=== PATIENT | female | born 2000 | race Caucasian/White ===

== ENCOUNTER 2019-06-07 11:41 | Inpatient (IN) ==
[2019-06-07] MEDS ORDERED: SODIUM CHLORIDE 0.9% 1000ML 2,000 ML IV SCH (12:15)
[2019-06-07] MEDS ORDERED: CEFEPIME 2,000 MG/20 ML VIAL IV STA (12:21)
[2019-06-07] MEDS ORDERED: VANCOMYCIN CONSULT ACTIVE PRN (12:21)
[2019-06-07] MEDS ORDERED: VANCOMYCIN HCL 1,250 MG in SODIUM CHLORIDE 0.9% 500 ML IV ONE (12:21)
[2019-06-07] MEDS ORDERED: ACETAMINOPHEN 500 MG TAB PO STA (12:25)
[2019-06-07] MEDS ORDERED: LACTATED RINGER'S 1,000 ML IV ONE ×2 (12:26→15:14)
[2019-06-07 12:50] LABS: INR 1.1 (0.9-1.1); Prothrombin Time 11.2 Seconds (9.0-12.0)
--- NOTE | 2019-06-07 12:53 | XRay Report ---
SINGLE VIEW CHEST CLINICAL HISTORY: Fever. FINDINGS: An AP, portable, upright chest radiograph is compared to study dated 03/10/2019. The cardiom ediastinal silhouette is unremarkable. The lungs and pleural spaces are clear. No pneumothorax is see n. The bony thorax is grossly intact. Bilateral nipple piercings are noted. IMPRESSION: No active disease in the chest. ACT 112: Negative or not required by law. Electronically signed by: Brandon Wood M.D. 06/07/2019 12:52 PM
[2019-06-07 13:00] LABS: Alanine Aminotransferase 13 U/L (12-78); Albumin Level 2.8 gm/dl (3.4-5.0); Aspartate Aminotransferase < 3 U/L (15-37); BUN Creatinine Ratio 13.2 (10-20); Blood Urea Nitrogen 6 mg/dl (7-18); Calcium 8.4 mg/dl (8.5-10.1); Carbon Dioxide 23 mmol/L (21-32); Chloride 101 mmol/L (98-107); Creatinine Clr Calc Pharmacy 178.7 ml/min; Est GFR (African American) > 150.0; Est GFR (Non-African American) 142.2; Glucose 109 mg/dl (70-99); Lipase 40 U/L (73-393); Potassium 3.2 mmol/L (3.5-5.1); Sodium 131 mmol/L (136-145)
[2019-06-07 13:05] LABS: Albumin Globulin Ratio 0.6 (0.9-2); Alkaline Phosphatase 39 U/L (45-117); Bilirubin,Total 1.1 mg/dl (0.2-1); Globulin 4.9 gm/dl (2.5-4.0); Total Protein 7.7 gm/dl (6.4-8.2); Troponin I < 0.015 ng/ml (0-0.045)
[2019-06-07 13:31] LABS: Hematocrit (blood only) 33.1 % (37-47); Hemoglobin 11.2 g/dL (12.0-16.0); Mean Corpuscular Hemoglobin 27.8 pg (25-34); Mean Corpuscular Hgb Conc 33.8 g/dL (32-36); Mean Corpuscular Volume 82.1 fL (80-100); Platelet Count 175 K/uL (130-400); RDW Coefficient of Variation 13.3 % (11.5-14.5); RDW Standard Deviation 40.7 fL (36.4-46.3); Red Blood Count 4.03 M/uL (4.2-5.4); White Blood Count 0.51 K/uL (4.8-10.8)
[2019-06-07 13:33] LABS: ALC (manual) 0.43 K/uL (1.2-3.4); ANC (manual) 0.01 K/uL (1.4-6.5); Basophils # (manual) 0.01 K/uL (0-0.2); Eosinophils # (manual) 0.02 K/uL (0-0.5); Giant Platelets 1+; Lymphocytes # (manual) 0.36 K/uL (1.2-3.4); Monocytes # (manual) 0.05 K/uL (0.11-0.59); Neutrophils # (manual) 0.01 K/uL (1.4-6.5); Reactive Lymphocytes # (manual) 0.07 K/uL; Toxic Granulation Occasional
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
[2019-06-07 14:57] LABS: Appearance Urine Cloudy (Clear); Bacteria Urine Automated 1+ (Negative); Blood Urine Negative (Negative); Color Urine Dark Yellow; Epithelial Cell Urine Auto >30 /lpf (0-5); Glucose Urine UA Negative (Negative); Leukocyte Esterase Urine Negative (Negative); Nitrite Urine Negative (Negative); Protein Urine 2+ (Negative); Urobilinogen Urine Negative (Negative)
[2019-06-07 15:02] LABS: Pregnancy Test, Urine Negative (Negative)
[2019-06-07 15:05] LABS: Bilirubin Urine 1+ (Negative)
[2019-06-07 15:06] LABS: Ketones Urine 3+ (Negative)
[2019-06-07 15:24] LABS: RBC Urine Automated 0-4 /hpf (0-4); Renal Epithelial Cells Urine 0-5 /lpf (0-5)
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
[2019-06-07] MEDS ORDERED: methylPREDNISolone 125 MG in SYRINGE 0 ML IV ONE (17:45)
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
[2019-06-07] MEDS: VANCOMYCIN HCL 1,000 MG in SODIUM CHLORIDE 0.9% 250 ML IV SCH (17:49)
[2019-06-07 18:18] LABS: BUN Creatinine Ratio 12.4 (10-20); Blood Urea Nitrogen 5 mg/dl (7-18); Carbon Dioxide 20 mmol/L (21-32); Chloride 108 mmol/L (98-107); Est GFR (African American) > 150.0; Est GFR (Non-African American) 147.6; Glucose 89 mg/dl (70-99); Potassium 3.5 mmol/L (3.5-5.1); Sodium 135 mmol/L (136-145)
[2019-06-07 18:25] LABS: Hematocrit (blood only) 28.1 % (37-47); Hemoglobin 9.8 g/dL (12.0-16.0); Mean Corpuscular Hemoglobin 27.8 pg (25-34); Mean Corpuscular Hgb Conc 34.9 g/dL (32-36); Mean Corpuscular Volume 79.6 fL (80-100); Mean Platelet Volume 10.2 fL (7.4-10.4); Platelet Count 153 K/uL (130-400); RDW Coefficient of Variation 13.6 % (11.5-14.5); RDW Standard Deviation 39.4 fL (36.4-46.3); Red Blood Count 3.53 M/uL (4.2-5.4); White Blood Count 0.75 K/uL (4.8-10.8)
[2019-06-07 18:38] LABS: Giant Platelets 2+
[2019-06-07 18:42] LABS: ALC (manual) 0.65 K/uL (1.2-3.4); ANC (manual) 0.01 K/uL (1.4-6.5); Basophils # (manual) 0.01 K/uL (0-0.2); Lymphocytes # (manual) 0.56 K/uL (1.2-3.4); Monocytes # (manual) 0.08 K/uL (0.11-0.59); Neutrophils # (manual) 0.01 K/uL (1.4-6.5)
[2019-06-07] MEDS ORDERED: IOVERSOL 100ml IV PRN (20:18)
--- NOTE | 2019-06-07 20:28 | CT Scan Report ---
CT soft tissue neck w con HISTORY: Sepsis, sore throat ?abscess TECHNIQUE: Multiaxial CT images of the neck were performed following the use of intravenous contrast. COMPARISON STUDY: None. FINDINGS: The visualized brain parenchyma and orbits are unremarkable. Prevertebral soft tissues and the epiglottis are normal in thickness. Moderate enlargement of the bilateral palatine tonsils which are symmetric. These abut medially and result in moderate airway narrowing. No loculated fluid collec tions to suggest a peritonsillar or retropharyngeal abscess. The remaining major mucosal airways serv ices are intact. The major cervical vessels enhance normally. The parotid and submandibular glands ar e within normal limits. The pterygopalatine fossa and paratracheal fat spaces are well-maintained. Bi lateral upper cervical lymphadenopathy with the largest lymph node on the right measuring 2.0 x 1.5 c m. This may be reactive. The lung apices are clear. No suspicious lytic are blastic osseous lesions. Mild mucosal thickening within the ethmoid air cells. The mastoid air cells are clear. No fluid level s within the paranasal sinuses. IMPRESSION: 1. Moderate enlargement of the bilateral palatine tonsils which abut medially resulting in moderate a irway narrowing. This likely represents a tonsillitis. 2. No evidence for peritonsillar abscess. 3. Bilateral upper cervical lymphadenopathy. This is likely reactive. ACT 112: Negative or not required by law. Electronically signed by: Osito Varghese M.D. 06/07/2019 8:27 PM
[2019-06-07] MEDS ORDERED: ONDANSETRON INJ 2 MG/ML 2 ML VIAL IV PRN (20:49)
[2019-06-07] MEDS: CEFEPIME 2,000 MG in SYRINGE 7.5 ML IV SCH (21:17)
[2019-06-08] MEDS: VANCOMYCIN HCL 1,000 MG in SODIUM CHLORIDE 0.9% 250 ML IV SCH ×4 (00:13→19:53)
[2019-06-08] MEDS: LACTATED RINGER'S 1,000 ML IV SCH ×4 (00:14→20:51)
[2019-06-08] MEDS: CEFEPIME 2,000 MG in SYRINGE 7.5 ML IV SCH ×3 (05:08→20:46)
[2019-06-08] MEDS ORDERED: VANCOMYCIN TROUGH ONE ×2 (06:30→18:30)
[2019-06-08 07:25] LABS: Hematocrit (blood only) 29.2 % (37-47); Mean Corpuscular Hemoglobin 27.9 pg (25-34); Mean Corpuscular Hgb Conc 34.2 g/dL (32-36); Mean Corpuscular Volume 81.3 fL (80-100); Mean Platelet Volume 10.1 fL (7.4-10.4); Platelet Count 169 K/uL (130-400); RDW Coefficient of Variation 13.4 % (11.5-14.5); RDW Standard Deviation 40.5 fL (36.4-46.3); Red Blood Count 3.59 M/uL (4.2-5.4)
[2019-06-08 07:34] LABS: Alanine Aminotransferase 12 U/L (12-78); Albumin Level 2.4 gm/dl (3.4-5.0); Aspartate Aminotransferase 3 U/L (15-37); Blood Urea Nitrogen 5 mg/dl (7-18); Calcium 8.5 mg/dl (8.5-10.1); Carbon Dioxide 23 mmol/L (21-32); Chloride 105 mmol/L (98-107); Creatinine Clr Calc Pharmacy 204.9 ml/min; Est GFR (African American) > 150.0; Est GFR (Non-African American) 148.7; Glucose 132 mg/dl (70-99); Potassium 3.3 mmol/L (3.5-5.1); Sodium 135 mmol/L (136-145)
[2019-06-08 07:42] LABS: Albumin Globulin Ratio 0.5 (0.9-2); Alkaline Phosphatase 34 U/L (45-117); Bilirubin,Total 0.6 mg/dl (0.2-1); Globulin 4.4 gm/dl (2.5-4.0); Total Protein 6.8 gm/dl (6.4-8.2)
--- NOTE | 2019-06-08 07:55 | Pharmacy Report ---
Pharmacy Abx Dose Short Note - Date of Service June 08, 2019 - Assessment & Plan A/P Vanco trough prior to Css 7.6mcg/mL. renal fxn remains stable. Continue with vanco 1000 (15mg/kg) q6. Will check trough tonight at 1900, this will be reflective of Css. All cultures are still pending. Pharmacy will continue to follow and will adjust dose/frequency as necessary. Thank you.
[2019-06-08] MEDS: methylPREDNISolone 40 MG in SYRINGE 0 ML IV SCH ×2 (08:19→20:46)
--- NOTE | 2019-06-08 08:24 | Hospitalist Progress Note ---
Date of Service June 08, 2019 Assessment & Plan (1) Sepsis: Continue admit to PCU Source of tonsillitis vs. cellulitis of left arm. No meningeal signs. Lactic acid normal Blood cultures x2 pending Urine culture positive for Staphylococcus aureus and wound culture positive for Staphylococcus species Continue empiric coverage with vancomycin + cefepime 2g IV Q8H Consulted Dr. Sarah Aparicio hematology and appreciate his recommendations. Propose lab pending MALLIKA, HIV, rheumatoid. secured entrance monitor Full code (2) Neutropenic fever: Discussed with Dr Soria. No additional labs required at this time. Consult placed to be seen tomorrow. (3) Cellulitis: Rx with cefepime + vancomycin -> consider narrowing antibiotics depending on the sensitivity of the cultures. (4) Tonsillitis: Rapid strep @ [facility] reportedly negative however will repeat here with reflex culture. Empiric coverage with Vanc + cefepime as above (5) DVT prophylaxis: SCDs and teds, ambulate 3 times daily. Subjective Patient seen and examined at the bedside. She is resting in the bed. She appears to be comfortable. She tolerates p.o. liquid. pt condition was discussed with her and her both parents. All questions are answered. Review of Systems Review of Systems: All systems reviewed & are unremarkable except as noted in HPI & below Physical Exam Constitutional: well developed and well nourished; no acute distress Eyes: PERRL, conjunctivae normal, anicteric sclerae ENMT: external ear and nose normal, oropharynx normal Neck: trachea midline, no thyromegaly Respiratory: normal respiratory effort, lungs clear to auscultation Cardiovascular: Rate/Rhythm: regular rhythm and + tachycardic Heart Sounds: no murmur Vessels: no JVD Extremities: normal capillary refill; no calf tenderness and no pedal edema Gastrointestinal (Abdomen): normal bowel sounds, soft, nontender, no hepatosplenomegaly Musculoskeletal: no cyanosis or clubbing, extremities motor strength 5/5 Skin: + erythema (5cm circular left foremarm with surrounding blisters on periphery) Neurologic: moves all extremities and awake; no focal motor deficits and not confused Speech / Cognition: normal speech Motor/Sensory: no tremor, no pronator drift and no sensory deficit Psychiatric: A+Ox3, euthymic affect Genitourinary: no CVA tenderness Lymphatic: + cervical lymphadenopathy (anterior b/l) Results & Data ([facility]) Vital Signs (Past 12 Hours) Vital Signs Temp Pulse Pulse Resp BP Pulse Ox 06/08/19 07:27 36.8 C 86 18 107/68 94 06/08/19 03:17 36.8 C 105 H 19 113/75 98 06/08/19 00:54 112 H 06/08/19 00:01 36.8 C 103 H 18 94/60 L 98 PG Care Time/CCT Total # of Minutes Spent Total Time Spent with Patient: Total time spent is greater than 50% in coordination of care (as documented) at patient's floor/unit and/or counseling patient: Coding Level of Care Code 57774 Subseq Hosp Care Lvl 3 Diagnoses Sepsis A41.9 Sepsis acute organ dysfunction status: unspecified Sepsis type: sepsis due to unspecified organism Neutropenic fever D70.9; R50.81 Cellulitis L03.114 Laterality: left Site of cellulitis: extremity Site of cellulitis of extremity: upper extremity Tonsillitis J03.90 DVT prophylaxis Z29.9 (1) Cellulitis Laterality: left Site of cellulitis: extremity Site of cellulitis of extremity: upper extremity Qualified Code(s): L03.114 - Cellulitis of left upper limb (2) Sepsis Sepsis acute organ dysfunction status: unspecified Sepsis type: sepsis due to unspecified organism Qualified Code(s): A41.9 - Sepsis, unspecified organism
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
--- NOTE | 2019-06-08 11:38 | Electrocardiogram Report ---
Test Reason : Blood Pressure : / mmHG Vent. Rate : 133 BPM Atrial Rate : 133 BPM P-R Int : 128 ms QRS Dur : 082 ms QT Int : 288 ms P-R-T Axes : 050 004 015 degrees QTc Int : 428 ms Sinus tachycardia Otherwise normal ECG When compared with ECG of 10-MAR-2019 20:31, No significant change was found Confirmed by Drew Doe ([id number]) on 06/08/2019 11:38:05 AM Referred By: REFERRED SELF Confirmed By:Drew Doe
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
[2019-06-08] MEDS ORDERED: COUGH DROP (SUGAR FREE) LOZ 24 LOZ/1 BOX BUCCAL ONE (13:53)
--- NOTE | 2019-06-08 19:41 | Pharmacy Report ---
Pharmacy Abx Dose Short Note - Date of Service June 08, 2019 - Assessment & Plan Assessment 19 year old F receiving Vancomycin for treatment of skin and soft tissue infection Day # 2 of antimicrobial therapy Patient is severely neutropenic Urine and L arm cultures growing staph species Will continue to be aggressive with vancomycin until organisms identified Patient currently receiving Vancomycin 1000 mg q6h with pre-steady state trough of 7.6 mcg/mL Plan Vancomycin * Trough level of 12.2 mcg/mL is subtherapeutic * Change to 1250 mg IV every 6 hours given subtherapeutic trough at steady state * Goal trough level: 15 to 20 mcg/mL given severity of illness * Trough level ordered for: 06/09/2019 @ 1330 Pharmacy will continue to follow and will adjust dose/frequency as necessary. Thank you.
[2019-06-08] MEDS: VANCOMYCIN HCL 1,250 MG in SODIUM CHLORIDE 0.9% 250 ML IV SCH (20:46)
[2019-06-08 20:49] LABS: Appearance Urine Clear (Clear); Bacteria Urine Automated 1+ (Negative); Bilirubin Urine Negative (Negative); Blood Urine Negative (Negative); Color Urine Yellow; Epithelial Cell Urine Auto >30 /lpf (0-5); Glucose Urine UA 2+ (Negative); Ketones Urine Negative (Negative); Leukocyte Esterase Urine Negative (Negative); Nitrite Urine Negative (Negative); Protein Urine Negative (Negative); RBC Urine Automated 0-4 /hpf (0-4); Specific Gravity Urine 1.016 (1.000-1.030); Urobilinogen Urine Negative (Negative)
[2019-06-08] MEDS: ACETAMINOPHEN 325 MG TAB PO PRN (23:42)
[2019-06-09] MEDS: VANCOMYCIN HCL 1,250 MG in SODIUM CHLORIDE 0.9% 250 ML IV SCH ×3 (01:41→14:46)
[2019-06-09] MEDS: CEFEPIME 2,000 MG in SYRINGE 7.5 ML IV SCH ×2 (04:12→13:49)
[2019-06-09 06:06] LABS: Hematocrit (blood only) 28.6 % (37-47); Hemoglobin 9.9 g/dL (12.0-16.0); Mean Corpuscular Hemoglobin 27.7 pg (25-34); Mean Corpuscular Hgb Conc 34.6 g/dL (32-36); Mean Corpuscular Volume 79.9 fL (80-100); Mean Platelet Volume 9.6 fL (7.4-10.4); Platelet Count 259 K/uL (130-400); RDW Coefficient of Variation 13.7 % (11.5-14.5); RDW Standard Deviation 39.8 fL (36.4-46.3); Red Blood Count 3.58 M/uL (4.2-5.4); White Blood Count 1.04 K/uL (4.8-10.8)
[2019-06-09 06:36] LABS: Basophils # (auto) 0.01 K/uL (0-0.2); Lymphocytes # (auto) 0.66 K/uL (1.2-3.4); Lymphocytes % (auto) 63.5 %; Monocytes % (auto) 19.2 %; Neutrophils # (auto) 0.17 K/uL (1.4-6.5); Neutrophils % (auto) 16.3 %
[2019-06-09 06:37] LABS: Alanine Aminotransferase 9 U/L (12-78); Albumin Level 2.2 gm/dl (3.4-5.0); Aspartate Aminotransferase 5 U/L (15-37); BUN Creatinine Ratio 23.3 (10-20); Blood Urea Nitrogen 10 mg/dl (7-18); Calcium 8.6 mg/dl (8.5-10.1); Carbon Dioxide 26 mmol/L (21-32); Chloride 108 mmol/L (98-107); Est GFR (African American) > 150.0; Est GFR (Non-African American) 147.6; Glucose 147 mg/dl (70-99); Potassium 3.2 mmol/L (3.5-5.1); Sodium 139 mmol/L (136-145)
[2019-06-09 06:39] LABS: Albumin Globulin Ratio 0.5 (0.9-2); Alkaline Phosphatase 31 U/L (45-117); Bilirubin,Total 0.3 mg/dl (0.2-1); Globulin 4.5 gm/dl (2.5-4.0); Total Protein 6.7 gm/dl (6.4-8.2)
--- NOTE | 2019-06-09 07:25 | Hospitalist Progress Note ---
Date of Service June 09, 2019 Assessment & Plan (1) Sepsis: Continue admit to PCU Source of tonsillitis vs. cellulitis of left arm. No meningeal signs. Lactic acid normal Blood cultures x2 negative in 48 hours Urine culture positive for Staphylococcus aureus and wound culture positive for Staphylococcus species Appreciate ID recommendations , discontinued vancomycin and cefepime as started patient with specific treatment ceftriaxone 2 g IV for MSSA. Upon discharge changed to Keflex 500 3 times daily for [address] Sarah Aparicio hematology and appreciate his recommendations. Propose lab pending MALLIKA, rheumatoid. HIV negative. anaesthesiologist Full code (2) Neutropenic fever: Discussed with Dr Soria. Follow his recommendations. Improving. (3) Cellulitis: Continue ceftriaxone thousand grams IV every 24 hours for MSSA and on discharge switch to Keflex 500 mg 3 times daily for 14 days as per ID recommendations. (4) Tonsillitis: Rapid strep @ [facility] reportedly negative however will repeat here with reflex culture. Would recommend referral to ENT after discharge. Patient has large tonsils and recurrent infections streptococcal/mononucleosis in the past 6 months and evaluation for possible tonsillectomy. (5) DVT prophylaxis: SCDs and teds, ambulate 3 times daily. Subjective Patient seen and examined at the bedside. She is resting in the bed. She appears to be comfortable. She tolerates p.o. liquid. pt condition was discussed with her and her both parents. All questions are answered. Review of Systems Review of Systems: All systems reviewed & are unremarkable except as noted in HPI & below Physical Exam Constitutional: well developed and well nourished; no acute distress Eyes: PERRL, conjunctivae normal, anicteric sclerae ENMT: external ear and nose normal, oropharynx normal Neck: trachea midline, no thyromegaly Respiratory: normal respiratory effort, lungs clear to auscultation Cardiovascular: Rate/Rhythm: regular rhythm and + tachycardic Heart Sounds: no murmur Vessels: no JVD Extremities: normal capillary refill; no calf tenderness and no pedal edema Gastrointestinal (Abdomen): normal bowel sounds, soft, nontender, no hepatosplenomegaly Musculoskeletal: no cyanosis or clubbing, extremities motor strength 5/5 Skin: + erythema (5cm circular left foremarm with surrounding blisters on periphery) Neurologic: moves all extremities and awake; no focal motor deficits and not confused Speech / Cognition: normal speech Motor/Sensory: no tremor, no pronator drift and no sensory deficit Psychiatric: A+Ox3, euthymic affect Genitourinary: no CVA tenderness Lymphatic: + cervical lymphadenopathy (anterior b/l) Results & Data ([facility]) Vital Signs (Past 12 Hours) Vital Signs Temp Pulse Pulse Resp BP BP Pulse Ox 06/09/19 06:59 36.5 C 84 20 107/70 96 06/09/19 04:10 36.5 C 58 L 19 94/58 L 97 06/08/19 23:45 36.4 C L 75 18 98/62 L 95 06/08/19 23:20 75 06/08/19 19:33 36.9 C 76 20 101/68 95 PG Care Time/CCT Total # of Minutes Spent Total Time Spent with Patient: Total time spent is greater than 50% in coordination of care (as documented) at patient's floor/unit and/or counseling patient: Coding Level of Care Code 92381 Subseq Hosp Care Lvl 3 Diagnoses Sepsis A41.9 Sepsis acute organ dysfunction status: unspecified Sepsis type: sepsis due to unspecified organism Neutropenic fever D70.9; R50.81 Cellulitis L03.114 Laterality: left Site of cellulitis: extremity Site of cellulitis of extremity: upper extremity Tonsillitis J03.90 DVT prophylaxis Z29.9 (1) Cellulitis Laterality: left Site of cellulitis: extremity Site of cellulitis of extremity: upper extremity Qualified Code(s): L03.114 - Cellulitis of left upper limb (2) Sepsis Sepsis acute organ dysfunction status: unspecified Sepsis type: sepsis due to unspecified organism Qualified Code(s): A41.9 - Sepsis, unspecified organism
[2019-06-09] MEDS: LACTATED RINGER'S 1,000 ML IV SCH ×3 (08:23→23:55)
[2019-06-09] MEDS: dexAMETHasone 4 MG in SYRINGE 0 ML IV SCH ×2 (09:36→19:49)
[2019-06-09] MEDS: ACETAMINOPHEN 325 MG TAB PO PRN ×2 (11:49→19:47)
--- NOTE | 2019-06-09 12:22 | Infectious Disease Progress Nt ---
Date of Service June 09, 2019 Assessment & Plan (1) Tonsillitis: continue abx and follow culture results. trend wbc, suspect steroids will elevated wbc. agree recent diagnosis of mono likely playing a role, will continue to follow wbc. follow throat culture, negative to date. can continue IV abx for now, upon d/c can change to Keflex 500mg tid x 14 days. (2) Neutropenic fever: Subjective pt afebrile, wbc increased to 1, ANC remains low blood cultures negative, wound culture and urine culture growing MSSA. Results & Data Vital Signs (Past 12 Hours) Vital Signs Temp Pulse Pulse Resp BP BP Pulse Ox 06/09/19 11:18 36.7 C 68 16 98/60 L 95 06/09/19 09:51 56 L 06/09/19 06:59 36.5 C 84 20 107/70 96 06/09/19 04:10 36.5 C 58 L 19 94/58 L 97 Laboratory Results Microbiology 06/07/19 17:20 Arm,Left Gram Stain - Final 06/07/19 17:20 Arm,Left Wound Culture - Final Staphylococcus aureus Staphylococcus aureus#2 06/07/19 14:20 Urine,Clean Catch Urine Culture - Final Staphylococcus aureus 06/07/19 12:30 Blood Aerobic Blood Culture - Preliminary No growth in Aerobic bottle after 24 hours. 06/07/19 12:30 Blood Anaerobic Blood Culture - Final 06/07/19 12:25 Blood Aerobic Blood Culture - Preliminary No growth in Aerobic bottle after 24 hours. 06/07/19 12:25 Blood Anaerobic Blood Culture - Preliminary No growth in Anaerobic bottle after 24 hours. 06/07/19 17:20 Throat Group A Streptococcus Rapid Screen - Final Specimen negative for Group A Beta Strep by rapid method. Culture report to follow. 06/07/19 17:20 Throat Group A Beta-Hemolytic Strep Cult - Preliminary No beta strep isolated to date. PG Care Time/CCT Total # of Minutes Spent Total Time Spent with Patient: Total time spent is greater than 50% in coordination of care (as documented) at patient's floor/unit and/or counseling patient: Coding Level of Care Code 98958 Subseq Hosp Care Lvl 1 Diagnoses Tonsillitis J03.90 Neutropenic fever D70.9; R50.81
[2019-06-09] MEDS ORDERED: VANCOMYCIN TROUGH ONE (13:30)
[2019-06-09] MEDS: cefTRIAXone SODIUM 2,000 MG in DEXTROSE 5% 50 ML IV SCH (19:47)
[2019-06-10] MEDS: ACETAMINOPHEN 325 MG TAB PO PRN (02:43)
[2019-06-10 06:32] LABS: Hematocrit (blood only) 29.3 % (37-47); Hemoglobin 10.2 g/dL (12.0-16.0); Mean Corpuscular Hgb Conc 34.8 g/dL (32-36); Mean Corpuscular Volume 80.5 fL (80-100); Mean Platelet Volume 9.8 fL (7.4-10.4); Platelet Count 277 K/uL (130-400); RDW Coefficient of Variation 13.9 % (11.5-14.5); RDW Standard Deviation 41.2 fL (36.4-46.3); Red Blood Count 3.64 M/uL (4.2-5.4); White Blood Count 1.88 K/uL (4.8-10.8)
[2019-06-10 07:00] LABS: Alanine Aminotransferase 9 U/L (12-78); Aspartate Aminotransferase 6 U/L (15-37); BUN Creatinine Ratio 15.9 (10-20); Blood Urea Nitrogen 7 mg/dl (7-18); Carbon Dioxide 25 mmol/L (21-32); Chloride 109 mmol/L (98-107); Creatinine Clr Calc Pharmacy 204.9 ml/min; Est GFR (African American) > 150.0; Est GFR (Non-African American) 148.7; Glucose 143 mg/dl (70-99); Potassium 3.3 mmol/L (3.5-5.1); Sodium 140 mmol/L (136-145)
[2019-06-10 07:03] LABS: Albumin Globulin Ratio 0.5 (0.9-2); Alkaline Phosphatase 31 U/L (45-117); Bilirubin,Total 0.2 mg/dl (0.2-1); Globulin 4.2 gm/dl (2.5-4.0); Total Protein 6.2 gm/dl (6.4-8.2)
[2019-06-10 07:52] LABS: Basophils # (auto) 0.02 K/uL (0-0.2); Basophils % (auto) 1.1 %; Giant Platelets 1+; Immature Granulocytes # (auto) 0.02 K/uL (0.00-0.02); Immature Granulocytes % (auto) 1.1 %; Lymphocytes # (auto) 1.08 K/uL (1.2-3.4); Lymphocytes % (auto) 57.4 %; Microcytosis Present; Monocytes # (auto) 0.29 K/uL (0.11-0.59); Monocytes % (auto) 15.4 %; Neutrophils # (auto) 0.47 K/uL (1.4-6.5); Toxic Granulation 1+
[2019-06-10] MEDS: dexAMETHasone 4 MG in SYRINGE 0 ML IV SCH (08:22)
[2019-06-10] MEDS: LACTATED RINGER'S 1,000 ML IV SCH ×2 (08:23→16:30)
--- NOTE | 2019-06-10 10:53 | Hospitalist Progress Note ---
Date of Service June 10, 2019 Assessment & Plan (1) Sepsis: Stable for transfer to floor Likely fever and neutropenia related to recent mono Possible secondary tonsillitis, cellulitis of left arm. No meningeal signs. Lactic acid normal Blood cultures x2 negative in 48 hours Urine culture positive for Staphylococcus aureus and wound culture positive for Staphylococcus species Appreciate ID recommendations , discontinued vancomycin and cefepime as started patient with specific treatment ceftriaxone 2 g IV for MSSA. Upon discharge changed to Keflex 500 3 times daily for [address] Sarah Aparicio hematology and appreciate his recommendations. Pending MALLIKA, rheumatoid. HIV negative. (2) Neutropenic fever: Likely related to recent mono per hem/onc (3) Cellulitis: Continue ceftriaxone thousand grams IV every 24 hours for MSSA and on discharge switch to Keflex 500 mg 3 times daily for 14 days as per ID recommendations. (4) Hypokalemia: Replace IV and monitor (5) Tonsillitis: Rapid strep @ [facility] reportedly negative, repeat neg as well Would recommend referral to ENT after discharge. Patient has large tonsils and recurrent infections streptococcal/mononucleosis in the past 6 months and evaluation for possible tonsillectomy. (6) DVT prophylaxis: SCDs and teds, ambulate 3 times daily. Subjective Pt is feeling overall improved. She ate dinner without issue last night. She did not have breakfast this AM as she just woke up. She is able to swallow better than [employer], but it is still somewhat restricted. No SOB or chest pain. She has been taking PO fluids, but feels she would take more if she did not have the IVF running. Pt denies abd pain, n/v/c/d, LE pain or swelling. Review of Systems Review of Systems: Pertinent positives and negatives reviewed in HPI--all others negative Physical Exam Constitutional: WD/WN, vitals as above Eyes: normal visual sotomayor by confrontation and + anicteric sclerae Neck: normal visual inspection and trachea midline Respiratory: normal respiratory effort, lungs clear to auscultation Cardiovascular: Rate/Rhythm: regular rate and regular rhythm Gastrointestinal (Abdomen): Inspection/Auscultation: abdomen not distended Percussion/Palpation: abdomen soft; abdomen nontender Musculoskeletal: Head/Neck/Chest: normocephalic and head atraumatic negative for edema, peripheral pulses intact Skin: no rashes, warm and dry Neurologic: awake; not confused Speech / Cognition: normal speech Psychiatric: A+Ox3, euthymic affect Results & Data ([facility]) Vital Signs (Past 12 Hours) Vital Signs Temp Pulse Pulse Resp BP Pulse Ox 06/10/19 08:00 57 L 06/10/19 07:37 36.4 C L 64 20 99/63 L 96 06/10/19 03:22 36.5 C 55 L 16 106/68 96 06/10/19 00:00 69 06/09/19 23:35 36.6 C 65 16 103/67 96 PG Care Time/CCT Total # of Minutes Spent Total Time Spent with Patient: Total time spent is greater than 50% in coordination of care (as documented) at patient's floor/unit and/or counseling patient: Coding Level of Care Code 71984 Subseq Hosp Care Lvl 3 Diagnoses Sepsis A41.9 Sepsis acute organ dysfunction status: unspecified Sepsis type: sepsis due to unspecified organism Neutropenic fever D70.9; R50.81 Cellulitis L03.114 Site of cellulitis: extremity Site of cellulitis of extremity: upper extremity Laterality: left Hypokalemia E87.6 Tonsillitis J03.90 DVT prophylaxis Z29.9 (1) Sepsis Sepsis acute organ dysfunction status: unspecified Sepsis type: sepsis due to unspecified organism Qualified Code(s): A41.9 - Sepsis, unspecified organism (2) Cellulitis Site of cellulitis: extremity Site of cellulitis of extremity: upper extremity Laterality: left Qualified Code(s): L03.114 - Cellulitis of left upper limb
[2019-06-10] MEDS: POTASSIUM CHLORIDE / WTR 10 MEQ/100 ML PLCT IV SCH ×2 (11:46→13:27)
[2019-06-10 11:58] LABS: EBV Nuclear Ag Antibody <18.00 U/mL
[2019-06-10] MEDS: cefTRIAXone SODIUM 2,000 MG in DEXTROSE 5% 50 ML IV SCH (22:02)
[2019-06-10] MEDS: JUNEL FE PO SCH ×2 (22:26→22:52)
[2019-06-11] MEDS: ACETAMINOPHEN 325 MG TAB PO PRN (02:09)
[2019-06-11 05:50] LABS: Hematocrit (blood only) 33.1 % (37-47); Hemoglobin 11.2 g/dL (12.0-16.0); Mean Corpuscular Hemoglobin 28.1 pg (25-34); Mean Corpuscular Hgb Conc 33.8 g/dL (32-36); Mean Platelet Volume 10.1 fL (7.4-10.4); Platelet Count 315 K/uL (130-400); RDW Coefficient of Variation 14.4 % (11.5-14.5); RDW Standard Deviation 43.6 fL (36.4-46.3); Red Blood Count 3.99 M/uL (4.2-5.4); White Blood Count 3.39 K/uL (4.8-10.8)
[2019-06-11 06:23] LABS: Alanine Aminotransferase 10 U/L (12-78); Albumin Level 2.1 gm/dl (3.4-5.0); Aspartate Aminotransferase 4 U/L (15-37); BUN Creatinine Ratio 12.9 (10-20); Blood Urea Nitrogen 6 mg/dl (7-18); Calcium 8.1 mg/dl (8.5-10.1); Carbon Dioxide 25 mmol/L (21-32); Chloride 108 mmol/L (98-107); Est GFR (African American) > 150.0; Est GFR (Non-African American) 141.2; Glucose 94 mg/dl (70-99); Potassium 3.2 mmol/L (3.5-5.1); Sodium 139 mmol/L (136-145)
[2019-06-11 06:25] LABS: Albumin Globulin Ratio 0.5 (0.9-2); Alkaline Phosphatase 30 U/L (45-117); Bilirubin,Total 0.2 mg/dl (0.2-1); Globulin 4.2 gm/dl (2.5-4.0); Total Protein 6.3 gm/dl (6.4-8.2)
[2019-06-11] MEDS ORDERED: GUAIFENESIN/DEXTROM SYRUP 100MG/10MG 5ML UDC PO ONE (06:46)
[2019-06-11 06:50] LABS: Basophils # (auto) 0.01 K/uL (0-0.2); Basophils % (auto) 0.3 %; Immature Granulocytes # (auto) 0.16 K/uL (0.00-0.02); Immature Granulocytes % (auto) 4.7 %; Lymphocytes # (auto) 1.75 K/uL (1.2-3.4); Lymphocytes % (auto) 51.6 %; Monocytes # (auto) 0.45 K/uL (0.11-0.59); Monocytes % (auto) 13.3 %; Neutrophils # (auto) 1.02 K/uL (1.4-6.5); Neutrophils % (auto) 30.1 %
[2019-06-11] MEDS ORDERED: POTASSIUM CHLORIDE 20 MEQ TABCR PO ONE (07:00)
[2019-06-11] MEDS ORDERED: CLOTRIMAZOLE/BETAMETHASONE CR 15 GM TUBE EXT STA (12:27)
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
[2019-06-11 14:50] LABS: Anti Nuclear Antibody Screen POSITIVE (NEGATIVE); Rheumatoid Factor <14 IU/mL (<14)
--- NOTE | 2019-06-11 16:39 | Hematology/Oncology Prog Note ---
Date of Service June 11, 2019 Assessment & Plan (1) Neutropenic fever: Her neutropenia is most likely related to her recent infections. Her EBV IgG and IgM were both still markedly positive, so she is likely still fighting that infection as well. Her counts have recovered nicely as her illness has subsided. She should have close follow up to make sure this trend continues. Her mother has decided to take her back home for a time, so she will arrange for follow up with her local PCP. I will arrange to see her back when she returns to the area to make sure her counts are still looking good and to follow up on any still-outstanding lab results. I suggested screening her for autoimmunity with an MALLIKA screen and rheumatoid factor. Her MALLIKA screen was positive, so we will need to follow this up with an additional workup. I can arrange for this at our visit as an outpatient. Present on Admission?: Yes Subjective Ms. Aguilar was resting comfortably in bed when I saw her. She was feeling and looking better. Her sore throat is subsiding and she denied any fevers or chills. Review of Systems Review of Systems: All systems reviewed & are unremarkable except as noted in HPI & below Physical Exam Constitutional: healthy appearing and comfortable; no acute distress ENMT: Nose: no external nose abnormality Mouth: no oral mucosal abnormality Throat: + tonsil abnormality (Prominent tonsils bilaterally without obvious exudate) Respiratory: normal respiratory effort, lungs clear to auscultation Cardiovascular: RRR, no murmur, no edema Gastrointestinal (Abdomen): Inspection/Auscultation: normal bowel sounds; abdomen not distended Percussion/Palpation: abdomen soft; abdomen nontender Skin: no rashes, warm and dry Psychiatric: A+Ox3, euthymic affect Lymphatic: no cervical or axillary lymphadenopathy Results & Data Vital Signs (Past 12 Hours) Vital Signs Temp Pulse Resp BP BP Pulse Ox 06/11/19 13:16 36.6 C 60 20 104/69 116/68 96 06/11/19 07:15 36.6 C 60 20 104/69 96 Laboratory Results Abnormal lab results 06/08/19 06/11/19 06/11/19 Range/Units 18:36 05:20 05:20 WBC 3.39 L (4.8-10.8) K/uL RBC 3.99 L (4.2-5.4) M/uL Hgb 11.2 L (12.0-16.0) g/dL Hct 33.1 L (37-47) % Immature Gran # (Auto) 0.16 H (0.00-0.02) K/uL Neut # (Auto) 1.02 L (1.4-6.5) K/uL Potassium 3.2 L (3.5-5.1) mmol/L Chloride 108 H (98-107) mmol/L BUN 6 L (7-18) mg/dl Creatinine 0.48 L (0.6-1.2) mg/dl Calcium 8.1 L (8.5-10.1) mg/dl AST 4 L (15-37) U/L ALT 10 L (12-78) U/L Alkaline Phosphatase 30 L (45-117) U/L Total Protein 6.3 L (6.4-8.2) gm/dl Albumin 2.1 L (3.4-5.0) gm/dl Globulin 4.2 H (2.5-4.0) gm/dl Albumin/Globulin Ratio 0.5 L (0.9-2) MALLIKA Screen POSITIVE A (NEGATIVE)
== END 2019-06-11 14:02 | disposition home or self-care (01) | DRG 872 ==
LOC: ED 11:41 → SUATTDRO 14:29 → 2S 15:13 → 4W 06-10 11:40